=== PATIENT | female | born 1950 | race Caucasian/White ===

== ENCOUNTER → 2017-08-31 | Outpatient (CLI) | payer OTHER | LOC: BMCIMAGING 09:03 | PROVIDERS: ATTEND Orthopaedic Surgery | DX: M17.11 Unilateral primary osteoarthritis, right knee (principal) ==

== ENCOUNTER → 2017-09-21 | Outpatient (CLI) | payer OTHER | LOC: FIMAGING 15:35 | PROVIDERS: ATTEND Orthopaedic Surgery | DX: Z01.818 Encounter for other preprocedural examination (principal); M17.11 Unilateral primary osteoarthritis, right knee; M23.41 Loose body in knee, right knee; M24.9 Joint derangement, unspecified ==

== ENCOUNTER 2017-10-05 09:50 | Observation (INO) | payer OTHER ==
--- NOTE | 2017-10-05 06:55 | PDHPUP ---
History & Physical Update H&P update statement: This history and physical update is based on an assessment of the patient which was completed after admission or registration (within 24 hours), but prior to the surgery/procedure. H&P update: no change in patient's condition since H&P completed
--- NOTE | 2017-10-05 06:56 | PDIAF ---
- Diagnosis Diagnosis: right knee djd Code Status: Full Code - Medication Management Discharge Medications: Medications to Continue on Transfer Aspirin EC [Aspirin EC 81 mg (*)] 81 mg PO DAILY 09/16/17 [Last Taken Unknown] Estradiol [Estradiol 0.5 MG (RX)] 0.5 mg PO DAILY 09/16/17 [Last Taken Unknown] Ibuprofen [Motrin (*)] 200 - 400 mg PO DAILY PRN 09/16/17 [Last Taken Unknown] Multivitamins [Multivitamin (*)] 1 each PO DAILY 09/16/17 [Last Taken Unknown] Discharge Medications: Refer to the Discharge Home Medication list for PRN reason. - Orders Services needed: Physical Therapy Diet Recommendation: no restrictions on diet Diet Texture: Regular Texture Diet Activity/Weight Bearing Restrictions: wbat. rom as hang. dressing changes daily. may shower without bandage, no soaking or immersion. f/u at two weeks. seek attn for increasing pain, cp, leg pain - Follow Up Care Current Providers and Referrals: Cheryl Stewart MD [Primary Care Provider] -
[~2017-10-05 09:50] MED LIST: BUPI/epINEPH/KETOROLAC/morphINE IU ONE; NS IV ONE; ROPIVACAINE 0.2% 80 MG, EPINEPHrine 0.2 MG, KETOROLAC TROMETHAMINE 30 MG, morphINE 10 M... IU ONE; TRANEXAMIC ACID IV ONE
[2017-10-05] MEDS ORDERED: ceFAZolin 2 GM/SWFI 2 GM/20 ML SYR IVP ONE (10:29)
[2017-10-05] MEDS ORDERED: ACETAMINOPHEN 325 MG TAB PO ONE (10:29)
[2017-10-05] MEDS ORDERED: FAMOTIDINE 20 MG TAB PO ONE (10:29)
[2017-10-05] MEDS ORDERED: LR 1,000 ML IV ONE (10:30)
[2017-10-05] MEDS ORDERED: THROMBIN (BOVINE) 5,000 UNIT VIAL TP ONE (10:53)
[2017-10-05] MEDS ORDERED: CALCIUM CHLORIDE 1 GM/10 ML INJ ONE (10:53)
[2017-10-05] MEDS ORDERED: ceFAZolin 1 GM/5 ML SYR ONE (10:53)
[2017-10-05 11:03] LABS: PLATELET COUNT 281 10^3/uL (150-400)
[2017-10-05] MEDS ORDERED: MIDAZOLAM 2 MG/2 ML VIAL IVP ONE (11:45)
--- NOTE | 2017-10-05 11:45 | PDANEPAE ---
ANE History of Present Illness Right knee OA ANE Past Medical History - Cardiovascular History Hx Hypertension: No Hx Arrhythmias: No Hx Chest Pain: No Hx Coronary Artery / Peripheral Vascular Disease: No Hx CHF / Valvular Disease: No Hx Palpitations: No - Pulmonary History Hx COPD: No Hx Asthma/Reactive Airway Disease: No Hx Recent Upper Respiratory Infection: No Hx Oxygen in Use at Home: No Hx Sleep Apnea: No Sleep Apnea Screening Result - Last Documented: Negative - Neurologic History Hx Cerebrovascular Accident: No Hx Seizures: No Hx Dementia: No - Endocrine History Hx Diabetes: No - Renal History Hx Renal Disorders: No - Liver History Hx Hepatic Disorders: No Hepatic History Comment: JUAN JOSE - Neurological & Psychiatric Hx Hx Neurological and Psychiatric Disorders: No - Cancer History Hx Cancer: No - Congenital Disorder History Hx Congenital Disorders: No - GI History Hx Gastrointestinal Disorders: No - Other Health History Other Health History: NEG - Chronic Pain History Chronic Pain: Yes (KNEE) - Surgical History Prior Surgeries: CHOLECYSTECTOMY. TONSILLECTOMY. HYSTERECTOMY PARTIAL ANE Review of Systems Review of Systems: - Exercise capacity METS (RN): 4 METS ANE Patient History - Allergies Allergies/Adverse Reactions: No Known Allergies Allergy (Unverified 09/16/17 15:30) - Home Medications Home Medications: Aspirin EC [Aspirin EC 81 mg (*)] 81 mg PO DAILY 09/16/17 [Last Taken 1 Week Ago ~09/28/17] Estradiol [Estradiol 0.5 MG (RX)] 0.5 mg PO DAILY 09/16/17 [Last Taken 10/05/17] Ibuprofen [Motrin (*)] 200 - 400 mg PO DAILY PRN 09/16/17 [Last Taken 1 Week Ago ~09/28/17] Multivitamins [Multivitamin (*)] 1 each PO DAILY 09/16/17 [Last Taken 1 Week Ago ~09/28/17] - NPO status NPO Since - Liquids (Date): 10/04/17 NPO Since - Liquids (Time): 22:30 NPO Since - Solids (Date): 10/04/17 NPO Since - Solids (Time): 21:00 - Anes Hx Anes Hx: no prior problems - Smoking Hx Smoking Status: Former smoker - Family Anes Hx Family Anes Hx: neg - N/A Family Hx Anesthesia Complications: NEG ANE Labs/Vital Signs - Labs Result Diagrams: 04/09/18 10:50 - Vital Signs Blood Pressure: 156/72 Heart Rate: 60 Respiratory Rate: 18 O2 Sat (%): 97 Height: 162.56 cm Weight: 78.018 kg ANE Physical Exam - Airway Neck exam: FROM Mallampati Score: Class 1 Mouth exam: normal dental/mouth exam - Pulmonary Pulmonary: no respiratory distress - Cardiovascular Cardiovascular: regular rate and rhythym - ASA Status ASA Status: I ANE Anesthesia Plan Anesthesia Plan: spinal Regional Anesthesia: adductor canal FNB
[2017-10-05] MEDS ORDERED: LIDOCAINE 2% 5 ML SDV ONE (11:52)
[2017-10-05] MEDS ORDERED: fentaNYL 100 MCG/2 ML INJ ONE ×2 (11:52→15:07)
[2017-10-05] MEDS ORDERED: PROPOFOL/EMULSION 500 MG/50 ML BOTTLE IV ONE (11:52)
[2017-10-05] MEDS ORDERED: ONDANSETRON 4 MG/2 ML VIAL ONE (11:52)
[2017-10-05] MEDS ORDERED: ONDANSETRON 4 MG/2 ML VIAL IVP PRN ×2 (14:20→14:34)
[2017-10-05] MEDS ORDERED: NALOXONE HCL 0.4 MG/ML INJ IVP PRN (14:20)
[2017-10-05] MEDS ORDERED: ROPIVACAINE HCL 150 MG/30 ML INJ ONE (14:22)
[2017-10-05] MEDS ORDERED: PROPOFOL 200 MG/20 ML VIAL ONE (14:26)
[2017-10-05] MEDS ORDERED: DIAZEPAM 5 MG TAB PO PRN (14:34)
[2017-10-05] MEDS ORDERED: POLYETHYLENE GLYCOL 3350 17 GM PKT PO PRN (14:34)
[2017-10-05] MEDS ORDERED: BISACODYL 10 MG SUPP PR PRN (14:34)
[2017-10-05] MEDS ORDERED: PROMETHAZINE HCL 25 MG/ML INJ IVP PRN (14:34)
[2017-10-05] MEDS ORDERED: ONDANSETRON DISINTEGRATING 4 MG TAB PO PRN (14:34)
[2017-10-05] MEDS ORDERED: MAGNESIUM HYDROXIDE 30 ML UDCUP PO PRN (14:34)
[2017-10-05] MEDS ORDERED: METOCLOPRAMIDE 10 MG/2 ML VIAL IVP PRN (14:34)
[2017-10-05] MEDS ORDERED: LACTULOSE 20 GM/30 ML UDCUP PO PRN (14:34)
[2017-10-05] MEDS ORDERED: DIPHENOXYLATE/ATROPINE LOMOTIL 1 TAB PO PRN (14:34)
[2017-10-05] MEDS ORDERED: diphenhydrAMINE 25 MG CAP PO PRN (14:34)
[2017-10-05] MEDS ORDERED: TEMAZEPAM 15 MG CAP PO PRN (14:34)
[2017-10-05] MEDS ORDERED: PROMETHAZINE HCL 25 MG SUPPR PR PRN (14:34)
[2017-10-05] MEDS ORDERED: TRANEXAMIC ACID 650 MG TAB PO SCH (14:45)
[2017-10-05] MEDS ORDERED: LR 1,000 ML IV SCH (15:00)
--- NOTE | 2017-10-05 15:03 | POSTANESTH ---
Post Anesthetic Evaluation Cardiovascular Status: Normal, Stable Respiratory Status: Normal, Stable Level of Consciousness/Mental Status: Can Participate in Eval Pain Control: Adequate, Prn Tx Ordered Nausea/Vomiting Control: Adequate, Prn Tx Ordered Complications Possibly Related to Anesthesia: None Noted (Adductor canal block done in PACU)
[2017-10-05] MEDS ORDERED: HYDROmorphONE/DILAUDID 2 MG/ML INJ ONE (15:07)
[2017-10-05] MEDS: fentaNYL 100 MCG/2 ML INJ IVP PRN ×2 (15:08→15:49)
[2017-10-05] MEDS: HYDROmorphONE/DILAUDID 1 MG/ML INJ IVP PRN ×3 (15:09→15:50)
[2017-10-05] MEDS: ACETAMINOPHEN 325 MG TAB PO SCH (17:56)
[2017-10-05] MEDS: TRANEXAMIC ACID 650 MG TAB PO SCH (20:43)
[2017-10-05] MEDS: SENNOSIDES/DOCUSATE SODIUM TAB PO SCH (20:43)
[2017-10-05] MEDS: ceFAZolin 2 GM/SWFI 2 GM/20 ML SYR IVP SCH (20:43)
[2017-10-05] MEDS: ASPIRIN 325 MG TAB PO SCH (20:43)
[2017-10-05] MEDS ORDERED: ceFAZolin 2 GM/DEXTROSE 100 ML IV SCH (22:00)
[2017-10-05] MEDS: FAMOTIDINE 20 MG TAB PO SCH (23:47)
[2017-10-06] MEDS: ACETAMINOPHEN 325 MG TAB PO SCH ×3 (00:09→11:56)
[2017-10-06] MEDS: ceFAZolin 2 GM/SWFI 2 GM/20 ML SYR IVP SCH (05:01)
[2017-10-06] MEDS: TRANEXAMIC ACID 650 MG TAB PO SCH ×2 (05:02→11:56)
[2017-10-06] MEDS: oxyCODONE IR 5 MG TAB PO PRN ×2 (06:19→10:39)
--- NOTE | 2017-10-06 07:45 | PDIAF ---
- Diagnosis Diagnosis: right knee djd Code Status: Full Code - Medication Management Discharge Medications: Medications to Continue on Transfer Aspirin EC [Aspirin EC 81 mg (*)] 81 mg PO DAILY 09/16/17 [Last Taken 1 Week Ago ~09/28/17] Estradiol 0.5 mg PO DAILY 09/16/17 [Last Taken 10/05/17] Ibuprofen [Motrin (*)] 200 - 400 mg PO DAILY PRN 09/16/17 [Last Taken 1 Week Ago ~09/28/17] Multivitamins [Multivitamin (*)] 1 each PO DAILY 09/16/17 [Last Taken 1 Week Ago ~09/28/17] Aspirin [Aspirin 325 mg (*)] 325 mg PO DAILY tab 10/06/17 [Last Taken Unknown] Diazepam [Valium 5 MG (*)] 5 mg PO Q6HRS PRN #50 tab 10/06/17 [Last Taken Unknown] oxyCODONE IR [Oxycodone Ir (*)] 5 - 10 mg PO Q3HRS PRN #60 tab 10/06/17 [Last Taken Unknown] Discharge Medications: Refer to the Discharge Home Medication list for PRN reason. - Orders Services needed: Physical Therapy Diet Recommendation: no restrictions on diet Diet Texture: Regular Texture Diet Activity/Weight Bearing Restrictions: wbat. rom as hang. dressing changes daily. may shower without bandage, no soaking or immersion. f/u at two weeks. seek attn for increasing pain, cp, leg pain - Follow Up Care Current Providers and Referrals: Eran Cervantes MD [Medical Doctor] - Cheryl Stewart MD [Primary Care Provider] -
--- NOTE | 2017-10-06 07:47 | SOAPPROG ---
SOAP Progress Note Assessment/Plan: Assessment: s/p tka Plan:wbat rom as hang f/u two weeks dvt precautions\ 10/06/17 07:45 Subjective: no co no cp or sob Objective: Vital Signs Temp Pulse Resp BP Pulse Ox 36.6 C 56 L 16 111/46 L 93 10/06/17 03:44 10/06/17 03:44 10/06/17 03:44 10/06/17 03:44 10/06/17 03:44 Laboratory Results 10/06/17 05:23 10/05/17 10/06/17 10/07/17 05:59 05:59 05:59 Intake Total 1350 Output Total 1325 Balance 25 dressing intact intact pf,dfk,ehl toes warm and pink neg homans cydney xrays stable alignment, no fx or lucency ICD10 Worksheet Patient Problems: Problems Problem Status Onset Arthritis of knee Acute - ICD10 Problem Qualifiers (1) Arthritis of knee
[2017-10-06] MEDS: FAMOTIDINE 20 MG TAB PO SCH (07:54)
[2017-10-06] MEDS: ASPIRIN 325 MG TAB PO SCH (07:54)
[2017-10-06] MEDS: SENNOSIDES/DOCUSATE SODIUM TAB PO SCH (07:54)
[2017-10-06 12:25] VITALS: BP 159/73
--- NOTE | 2017-10-06 14:23 | ASMTCMCOM ---
CM Note CM Note Notes: Pt medically stable for d/c with [facility] PT. Orders sent in [employer]. Date Signed: 10/06/2017 02:22 PM Electronically Signed By:ADAMA Matthew
--- NOTE | 2017-10-06 14:23 | ASDISCHSUM ---
Discharge Information Plan Status:Home with Home Health Medically Cleared to Leave: Discharge Date:10/06/2017 01:11 PM CM D/C Disposition:Home Health Service ADT D/C Disposition:Home Health Service Projected Discharge Date:10/06/2017 11:00 AM Transportation at D/C: Discharge Delay Reason: Follow-Up Date:10/06/2017 11:00 AM Discharge Slot: Final Diagnosis: Placement Information Referral Type:*Home Health Care Services Referral ID:[id number] Provider Name:[facility] ([facility]) Address 1:[address] [address] Address 2: City:[place] Selection Factors: State:[place] Patient Contact Information Contact Name:DANNIE Relationship: Address:[address] City:[place] Alternate Phone: State/Zip Code:[place] [address] Email: Financial Information Financial Class:Medicare Primary Plan Desc:MEDICARE OUTPATIENT Primary Plan Number:[id number] Secondary Plan Desc:[employer] Secondary Plan Number:[id number] Assessment Information [facility] CM Progress Note CM Note CM Note Notes: Pt medically stable for d/c with [facility] PT. Orders sent in [facility]. Date Signed: 10/06/2017 02:22 PM Electronically Signed By:ADAMA Matthew Intervention Information
--- NOTE | 2017-10-10 07:00 | GDS ---
[f rep st] DISCHARGE SUMMARY ADMISSION DIAGNOSIS: Right knee degenerative disk disease. DISCHARGE DIAGNOSIS: Right knee degenerative disk disease. PROCEDURE: Right total knee arthroplasty/MAKOplasty. HISTORY OF PRESENT ILLNESS: Joann Shay is a 67-year-old woman who has end-stage arthritis to her r ight knee. Clinical and radiographic features are consistent with this. She has failed attempts at conservative management. I have recommended total knee replacement. She understood this and wished to proceed. HOSPITAL COURSE: The patient was admitted to the hospital floor after uncomplicated total knee arthr oplasty. She had no postoperative complications. At the time of discharge, she is tolerating an ora l diet. Pain is well controlled on oral medicines. She is voiding without difficulty. Dressing is clean, dry, and intact. She has negative Bethany's bilaterally. X-rays are stable with anatomic align ment. She has serially stable hematocrits. Has been cleared by Physical Therapy. DISCHARGE ACTIVITY: Weightbearing as tolerated. Range of motion as tolerated. Daily dressing earnest mathew. MARKOS mix x2 weeks. DISCHARGE MEDICATIONS: 1. Aspirin 325 mg p.o. daily. 2. Valium 5 mg 1 to 2 every 6 hours p.r.n. spasm. 3. Oxycodone 5 mg 1 to 2 every 6 hours p.r.n. pain. /[id number]/MODL
--- NOTE | 2017-10-10 07:00 | GOP ---
[f rep st] OPERATIVE REPORT DATE OF OPERATION: 10/05/2017 SURGEON: Eran Cervantes MD [facility] PROGRAM COORDINATOR: Girish Barcenas, MEDIA BUYER, DIE MAKER, operating room surgical technologist, whose medical necessity for the entirety o f the case. PREOPERATIVE DIAGNOSIS: Right knee degenerative joint disease. POSTOPERATIVE DIAGNOSIS: Right knee degenerative joint disease. PROCEDURE PERFORMED: Right total knee arthroplasty, MAKOplasty. FINDINGS: SPECIMENS: Pathology, bony cuts. DESCRIPTION OF PROCEDURE: The patient was identified in the preanesthesia area. The right knee gutierrez rly demarcated as the operative site with indelible marker. She was given 2 g of Ancef intravenously en route to the operative suite. In the OR, spinal anesthetic with sedation was placed. The patien t was positioned in the supine position. A tourniquet was applied to the upper right thigh. The odonnell b was then sterilely prepped and draped in usual fashion. Appropriate time-out procedure was carried out. The limb was exsanguinated with an Esmarch bandage. Tourniquet inflated to 275 mmHg. A stand padilla anterior midline incision was made. Thick subcutaneous flaps were elevated followed by a medial parapatellar arthrotomy. The knee demonstrated tricompartmental arthritic changes. Subperiosteal di ssection was carried out to the mid-coronal plane and retractors were placed. Two pins were then edward justin through the incision into the medial cortex of the femur. Two pins placed across the distal gibbs and the femoral and tibial reference rays were affixed. The femoral and tibial checkpoints were the n placed. The bony landmarks were then entered into the computer using the appropriate probe. The k nee was taken through flexion and extension and was balanced with both soft tissue releases, and renea pulation of the components using the MAKOplasty software. Using the MAKOplasty robot, the resections were made for a size 5 femur, size 4 tibia, a size 5 box cut was then made. Trial reduction was car ried out over a 4 x 9 mm thick polyethylene trial. This allowed full extension and flexion without i nstability throughout the flexion-extension arc and this was selected as a final implant. The bony s urfaces were cleansed. The tibial component was impacted in the press-fit technique. The femoral co mponent was pressed into place and a 4 x 9 mm polyethylene spacer was placed, impacted, confirmed to be fully seated. The knee was brought to extension. The patella was then everted, cut in a freehand cutting technique. Drill holes were made for a size 35 mm poly patella and this was then pressed in to place in a press-fit technique. The patella tracked centrally through the flexion-extension arc. The wound was copiously irrigated. The medial parapatellar arthrotomy closed after injection of the capsule, subcutaneous tissues with a joint cocktail of ropivacaine, morphine, Toradol, and epinephri ne. The retinaculum was closed using #1 Ethibond sutures. Subcutaneous tissue using 2-0 Quill, and the skin with stapled. Sterile dressing was applied. The patient was awakened, extubated and taken to recovery room in good stable condition. OPERATIVE INDICATIONS: The patient is a 67-year-old woman with end-stage arthritis to her right knee . Clinical and radiographic features are consistent with this. She has failed all attempts at conse rvative management. I have, therefore, recommended total knee replacement. She understood the risks , benefits, alternatives, and wished to proceed. Consent was signed and placed in the patient's corby t. TOTAL TOURNIQUET TIME: 50 minutes. COMPLICATIONS: None. IMPLANTS: Michael Triathlon Knee PS, femoral component size 5, tibial component, size 4, tibial X3 b earing insert 4 x 9 mm and a 35 mm poly patella. /[id number]/MODL
== END 2017-10-06 13:11 | disposition home health service (06) ==
LOC: INTOOBSV 10:19 → F3N 10:19
PROVIDERS: ADMIT Orthopaedic Surgery; ATTEND Orthopaedic Surgery
PROC: 0SRC0JZ Replacement of Right Knee Joint with Synthetic Substitute, Open Approach (ICD-10-PCS; principal; 2017-10-05 12:00)
DX: M17.11 Unilateral primary osteoarthritis, right knee (principal)
CPT/HCPCS: 27446; 73560; 88311; 97116; 97161; 97165; C1776; G8978; G8979; G8980; G8987; G8988; G8989; J0171; J0690; J1170; J1885; J2250; J2270; J2704; J2795; J3010; J2405

== ENCOUNTER → 2017-11-13 | Outpatient (CLI) | payer OTHER | LOC: BMCIMAGING 09:45 | PROVIDERS: ATTEND Physician Assistant | DX: Z47.1 Aftercare following joint replacement surgery (principal); Z96.651 Presence of right artificial knee joint ==

== ENCOUNTER → 2017-12-31 | Outpatient (CLI) | payer OTHER | LOC: BMCIMAGING 09:28 | PROVIDERS: ATTEND Orthopaedic Surgery | DX: Z47.1 Aftercare following joint replacement surgery (principal); Z96.651 Presence of right artificial knee joint ==

== ENCOUNTER → 2018-04-14 | Outpatient (CLI) | payer OTHER | LOC: BMCIMAGING 08:14 | PROVIDERS: ATTEND Orthopaedic Surgery | DX: Z47.1 Aftercare following joint replacement surgery (principal); Z96.651 Presence of right artificial knee joint ==

== ENCOUNTER → 2018-05-12 | Outpatient (CLI) | payer OTHER | LOC: FIMAGING 09:09 | PROVIDERS: ATTEND Family Medicine | DX: E04.2 Nontoxic multinodular goiter (principal) ==

== ENCOUNTER → 2018-06-10 | Outpatient (CLI) | payer OTHER | LOC: BMCIMAGING 16:09 | PROVIDERS: ATTEND Podiatrist Foot & Ankle Surgery | DX: M19.072 Primary osteoarthritis, left ankle and foot (principal) ==

== ENCOUNTER → 2018-06-14 | Outpatient (CLI) | payer OTHER ==
[~2018-06-14] MED LIST changes: -BUPI/epINEPH/KETOROLAC/morphINE IU ONE; +LIDOCAINE 1% 300 MG/30 ML SDV ONE; -NS IV ONE; -ROPIVACAINE 0.2% 80 MG, EPINEPHrine 0.2 MG, KETOROLAC TROMETHAMINE 30 MG, morphINE 10 M... IU ONE; -TRANEXAMIC ACID IV ONE
== END ==
LOC: FIMAGING 07:56
PROVIDERS: ATTEND Internal Medicine Endocrinology, Diabetes & Metabolism
PROC: 0G9H3ZZ Drainage of Right Thyroid Gland Lobe, Percutaneous Approach (ICD-10-PCS; principal; 2018-06-14)
DX: E04.2 Nontoxic multinodular goiter (principal)

== ENCOUNTER 2018-08-02 13:41 | Day surgery (SDC) | payer OTHER ==
[2018-08-02] MEDS ORDERED: ceFAZolin 2 GM/DEXTROSE 100 ML IV ONE (13:55)
[2018-08-02] MEDS ORDERED: LR 1,000 ML IV ONE (13:56)
[2018-08-02] MEDS ORDERED: LIDOCAINE 1% 2 ML INJ ID PRN (13:56)
[2018-08-02] MEDS ORDERED: LIDOCAINE 2% 100 MG/5 ML SYR ONE (14:29)
[2018-08-02] MEDS ORDERED: BUPIVACAINE 0.5% 30 ML SDV ONE (14:29)
[2018-08-02] MEDS ORDERED: ceFAZolin 1 GM/5 ML SYR ONE (14:30)
[2018-08-02] MEDS ORDERED: fentaNYL 100 MCG/2 ML INJ ONE ×4 (14:50→19:14)
[2018-08-02] MEDS ORDERED: PROPOFOL 200 MG/20 ML VIAL ONE ×2 (14:50→17:15)
[2018-08-02] MEDS ORDERED: LIDOCAINE 2% 5 ML SDV ONE (14:51)
[2018-08-02] MEDS ORDERED: DEXAMETHASONE 4 MG/ML VIAL ONE ×2 (14:51)
[2018-08-02] MEDS ORDERED: ONDANSETRON 4 MG/2 ML VIAL ONE ×2 (14:51→18:06)
[2018-08-02] MEDS ORDERED: MIDAZOLAM 2 MG/2 ML VIAL IVP ONE (14:52)
--- NOTE | 2018-08-02 14:55 | PDANEPAE ---
ANE Past Medical History - Cardiovascular History Hx Hypertension: No Hx Arrhythmias: No Hx Chest Pain: No Hx Coronary Artery / Peripheral Vascular Disease: No Hx CHF / Valvular Disease: No Hx Palpitations: No - Pulmonary History Hx COPD: No Hx Asthma/Reactive Airway Disease: No Hx Recent Upper Respiratory Infection: No Hx Oxygen in Use at Home: No Hx Sleep Apnea: No Sleep Apnea Screening Result - Last Documented: Negative - Neurologic History Hx Cerebrovascular Accident: No Hx Seizures: No Hx Dementia: No - Endocrine History Hx Diabetes: No - Renal History Hx Renal Disorders: No - Liver History Hx Hepatic Disorders: No Hepatic History Comment: JUAN JOSE - Neurological & Psychiatric Hx Hx Neurological and Psychiatric Disorders: No - Cancer History Hx Cancer: No - Congenital Disorder History Hx Congenital Disorders: No - GI History GERD: no Hx Gastrointestinal Disorders: No - Other Health History Other Health History: partial (can be removed) - Chronic Pain History Chronic Pain: No - Surgical History Prior Surgeries: CHOLECYSTECTOMY. TONSILLECTOMY. HYSTERECTOMY PARTIAL ANE Review of Systems Review of Systems: - Exercise capacity METS (RN): 4 METS ANE Patient History - Allergies Allergies/Adverse Reactions: No Known Allergies Allergy (Verified 07/12/18 12:19) - Home Medications Home medications: home medication list seen and reviewed Home Medications: Aspirin EC [Aspirin EC 81 mg (*)] 09/16/17 [Last Taken 07/26/18] Estradiol 09/16/17 [Last Taken 07/26/18] Ibuprofen [Motrin (*)] 09/16/17 [Last Taken 07/26/18] Multivitamins [Multivitamin (*)] 09/16/17 [Last Taken 07/26/18] - NPO status NPO Status: no food or drink >8 hours NPO Since - Liquids (Date): 08/02/18 NPO Since - Liquids (Time): 09:00 NPO Since - Solids (Date): 08/01/18 NPO Since - Solids (Time): 21:00 - Anes Hx Anes Hx: no prior problems - Smoking Hx Smoking Status: Former smoker - Family Anes Hx Family Hx Anesthesia Complications: none ANE Labs/Vital Signs - Vital Signs Blood Pressure: 153/70 Heart Rate: 72 Respiratory Rate: 16 O2 Sat (%): 95 Height: 162.56 cm Weight: 77.111 kg ANE Physical Exam - Airway Neck exam: FROM Mallampati Score: Class 1 Mouth exam: normal dental/mouth exam - Pulmonary Pulmonary: no respiratory distress, no rales or rhonchi, clear to auscultation - Cardiovascular Cardiovascular: regular rate and rhythym, no murmur, rub, or gallop - ASA Status ASA Status: I ANE Anesthesia Plan Anesthesia Plan: GA w LMA
--- NOTE | 2018-08-02 15:52 | PDHPUP ---
History & Physical Update H&P update statement: This history and physical update is based on an assessment of the patient which was completed after admission or registration (within 24 hours), but prior to the surgery/procedure. H&P update: H&P reviewed & patient examined
[2018-08-02] MEDS ORDERED: NALOXONE HCL 0.4 MG/ML INJ IVP PRN (17:59)
[2018-08-02] MEDS ORDERED: HYDROCODONE/APAP 5/325 TAB PO PRN (17:59)
[2018-08-02] MEDS ORDERED: ACETAMINOPHEN 500 MG TAB PO PRN (17:59)
[2018-08-02] MEDS ORDERED: PROMETHAZINE HCL 25 MG/ML INJ IVP PRN (17:59)
[2018-08-02] MEDS ORDERED: LR 500 ML IV PRN (17:59)
[2018-08-02] MEDS ORDERED: ONDANSETRON 4 MG/2 ML VIAL IVP PRN (17:59)
[2018-08-02] MEDS ORDERED: oxyCODONE IR 5 MG TAB PO PRN (17:59)
[2018-08-02] MEDS ORDERED: KETOROLAC 30 MG/1 ML SDV ONE (18:09)
--- NOTE | 2018-08-02 18:38 | POSTANESTH ---
Post Anesthetic Evaluation Cardiovascular Status: Normal, Stable, Similar to Pre-Op Cond Respiratory Status: Normal, Stable, Similar to Pre-op Cond. Level of Consciousness/Mental Status: Can Participate in Eval, Mildly Sleepy, Arousable Pain Control: Adequate, Prn Tx Ordered Nausea/Vomiting Control: Adequate, Prn Tx Ordered Complications Possibly Related to Anesthesia: None Noted
[2018-08-02] MEDS: fentaNYL 100 MCG/2 ML INJ IVP PRN ×5 (18:45→19:23)
--- NOTE | 2018-08-02 18:47 | POSTOPPROG ---
Post Op Note Date of Operation: 08/02/18 Surgeon: Brenda Cloud Anesthesiologist: Dr. Aquino Anesthesia: GET(General Endotracheal) Pre-op Diagnosis: Left peroneus brevis tendon rupture, ankle instability, os peroneum syndrom Post-op Diagnosis: Left peroneus brevis tendon rupture, ankle instability, os peroneum syndrom Indication: Rupture of peroneus brevis, ankle instability, painful os peroneum Procedure: L peroneal tendon repair with anstomosis, Brostrom, excision os peroneum Findings: Tenosynovitis peroneal tendons, ruptured and fibrosed peroneal tendons Inf/Abcess present in the surg proc area at time of surgery?: No Depth: Deep Incisional (Fascial) EBL: PTT @300 mm Hg 2 hours Complications: None
[2018-08-02] MEDS ORDERED: HYDROCODONE/APAP 5/325 TAB ONE (19:04)
[2018-08-02 19:49] VITALS: BP 128/63
--- NOTE | 2018-08-02 23:49 | GOP ---
[f rep st] OPERATIVE REPORT DATE OF OPERATION: 08/02/2018 SURGEON: Brenda Cloud DPM ANESTHESIA: General anesthesia. ANESTHESIOLOGIST: Dr. Aquino. PREOPERATIVE DIAGNOSIS: 1. Left peroneus brevis tendon rupture. 2. Left lateral ankle instability. 3. Left os peroneum syndrome. POSTOPERATIVE DIAGNOSIS: 1. Left peroneus brevis tendon rupture. 2. Left lateral ankle instability. 3. Left os peroneum syndrome. PROCEDURE PERFORMED: 1. Left ankle peroneal tendon repair with anastomosis and Arthroflex tissue graft. 2. Left ankle Brostrom lateral ankle stabilization. 3. Left ankle excision of os peroneum. FINDINGS: Tenosynovitis within the peroneal tendon sheath, ruptured peroneus brevis with retraction of the tendon ends with fibrosis and adhesions about the peroneal tendon to the peroneal tendon sheath. ESTIMATED BLOOD LOSS: Minimal. DESCRIPTION OF PROCEDURE: Under mild sedation, the patient was brought to the operating room, placed on the operating table in supine position. General anesthesia was then performed. A thigh tourniquet was placed about the left thigh. The foot and leg were then scrubbed, prepped, and draped in the usual aseptic manner. The foot and ankle were exsanguinated and tourniquet inflated to 300 mmHg. Attention was then directed to the lateral aspect of the left ankle where incision was made along the peroneal tendon from the retromalleolar sulcus distally to the 5th metatarsal base. The incision was deepened through subcutaneous tissue with care taken to identify and retract all vital neurovascular structures. All bleeders were cauterized as necessary. The peroneal tendon sheath was then incised and an abundant amount of synovial fluid expressed from the tendon sheath with significant peroneal tendon tenosynovitis. The synovitis in the area was debrided and removed. At this point, the peroneal tendons were evaluated. The peroneus longus was immediately identified and was found to be free of adhesions and fibrosis. The peroneus brevis was then evaluated and bulky tendon ends noted proximally at the retromalleolar sulcus and distally just proximal to the 5th metatarsal base. There were some fibers remaining. However, this was adhered to the peroneal tendon sheath. The fibers of the peroneal tendon were debrided from the peroneal tendon sheath and abnormal tissue debrided and removed. The scar tissue was all debrided and removed from the area. It was decided to anastomose the peroneus brevis to the peroneus longus. The distal aspect of the peroneus brevis was identified and the bulky scar tissue debrided. The os peroneum was then removed from the peroneus longus. The distal and proximal peroneal tendons were anastomosed to each other using 2-0 FiberWire. This was reinforced at both sides of the tendons. An Arthroflex tissue graft was then wrapped around the tendons to help reinforce the repair. This was sutured to the tendons using 3-0 Vicryl. The wound was then irrigated with copious sterile saline Ancef irrigation. The peroneal tendon sheath was then repaired with 2-0 and 3-0 Vicryl. The subcuticular layer was repaired with 3-0 Vicryl and 4-0 Monocryl. The skin was then repaired with 4-0 Prolene in horizontal suture technique. Attention was then directed to the anterior talofibular ligament where an incision was made distal and anterior to the lateral malleolus. The incision was deepened through subcutaneous tissue with care taken to identify and retract all vital neurovascular structures. All bleeders were cauterized as necessary. An incision was then made into the periosteum, and the periosteum reflected anteriorly and posteriorly off the fibula. The mini anchors were then inserted from anterior to posterior. The suture was then brought anteriorly to repair the anterior talofibular ligament as well as the calcaneofibular ligament and the inferior extensor retinaculum. The suture was then tightened and then crossed and reinserted into the fibula using 2 push locks. The ankle was nicely stabilized with this procedure. The wound was irrigated. Using a [id number] surgical technique with 3-0 PDS, the periosteum and capsule were closed. The subcuticular layer was repaired with 4 Monocryl and the skin with 4-0 Prolene in a horizontal suture technique. The incisions were dressed with Xeroform, 4 x 4 gauze, Arden, cast padding, posterior splint, and Alex wrap. The tourniquet was deflated at 2 hours. A prompt hyperemic response was noted to all digits of the left foot. The patient was then transferred to the recovery room with vital signs stable and vascular status intact. Following a period of postoperative monitoring, the patient will be discharged home advised to ice and elevate her foot. She is advised to keep the dressing clean, dry, and intact. She is nonweightbearing on her foot for the next 3-4 weeks. She will follow up with me in the next week for wound check and dressing change. HEMOSTASIS: Pneumatic thigh tourniquet at 300 mmHg for 2 hours. MATERIALS: Arthrex mini anchors 2.4 biosuture Lm anchors x2 and 2.5 mm Bio PushLock Anchors x2, 4-0 and 2-0 FiberWire, Arthroflex tissue graft. /[id number]/MODL MTDD
== END 2018-08-02 20:02 | disposition home or self-care (01) ==
LOC: FSGY 13:41
PROVIDERS: ATTEND Podiatrist Foot & Ankle Surgery
DX: S86.312A Strain of muscle(s) and tendon(s) of peroneal muscle group at lower leg level, left leg, initial encounter (principal); M25.372 Other instability, left ankle; M77.52 Other enthesopathy of left foot and ankle; X58.XXXA Exposure to other specified factors, initial encounter; D75.89 Other specified diseases of blood and blood-forming organs; M25.472 Effusion, left ankle; Z87.891 Personal history of nicotine dependence
CPT/HCPCS: C1713; J0690; J1100; J1885; J2001; J2250; J2405; J2704; J3010; Q4125

== ENCOUNTER → 2018-10-13 | Outpatient (CLI) | payer OTHER | LOC: BMCIMAGING 08:33 | PROVIDERS: ATTEND Orthopaedic Surgery | DX: M25.561 Pain in right knee (principal); Z96.651 Presence of right artificial knee joint ==